=== PATIENT | female | born 1960 | race Caucasian/White ===

== ENCOUNTER → 2017-07-17 | Outpatient (CLI) | payer BC ==
[2017-07-17] MEDS: REGADENOSON 0.4 MG/5 ML DISP.SYRIN. IV (09:33)
== END | disposition home or self-care (01) ==
LOC: NM 07:41
DX: R07.89 Other chest pain (principal)
CPT/HCPCS: 78452; 93017; 96374; 96375; 96376; A9500; J2785